=== PATIENT | male | born 1960 ===

== ENCOUNTER 2017-10-11 07:41 | Outpatient (CLI) | payer OTHER ==
[~2017-10-11] VITALS: Ht 152.4 cm; Wt 70.3 kg
== END 2017-10-11 08:00 | disposition home or self-care (01) ==
LOC: OFIC 805 07:41
DX: H91.8X1 Other specified hearing loss, right ear (principal); H90.72 Mixed conductive and sensorineural hearing loss, unilateral, left ear, with unrestricted hearing on the contralateral side; J31.0 Chronic rhinitis

== ENCOUNTER 2018-02-14 07:35 | Outpatient (CLI) | payer OTHER ==
[~2018-02-14] VITALS: Ht 152.4 cm; Wt 70.3 kg
== END 2018-02-14 07:50 | disposition home or self-care (01) ==
LOC: OFIC 805 07:35
DX: H93.8X1 Other specified disorders of right ear (principal); H90.72 Mixed conductive and sensorineural hearing loss, unilateral, left ear, with unrestricted hearing on the contralateral side; J31.0 Chronic rhinitis; R42 Dizziness and giddiness; H61.23 Impacted cerumen, bilateral

== ENCOUNTER 2018-05-23 07:32 | Outpatient (CLI) | payer OTHER ==
[~2018-05-23] VITALS: Ht 152.4 cm; Wt 70.3 kg
== END 2018-05-23 07:45 | disposition home or self-care (01) ==
LOC: OFIC 805 07:32
DX: H90.72 Mixed conductive and sensorineural hearing loss, unilateral, left ear, with unrestricted hearing on the contralateral side (principal); J31.0 Chronic rhinitis; R42 Dizziness and giddiness; H61.23 Impacted cerumen, bilateral; H90.41 Sensorineural hearing loss, unilateral, right ear, with unrestricted hearing on the contralateral side

== ENCOUNTER 2018-06-13 08:24 | Outpatient (CLI) | payer OTHER ==
[~2018-06-13] VITALS: Ht 152.4 cm; Wt 70.3 kg
== END 2018-06-13 08:40 | disposition home or self-care (01) ==
LOC: OFIC 805 08:24
DX: J31.0 Chronic rhinitis (principal); H90.72 Mixed conductive and sensorineural hearing loss, unilateral, left ear, with unrestricted hearing on the contralateral side; J34.2 Deviated nasal septum; J34.3 Hypertrophy of nasal turbinates; J32.8 Other chronic sinusitis; H91.8X1 Other specified hearing loss, right ear

== ENCOUNTER 2019-01-07 09:54 | Outpatient (CLI) | payer OTHER ==
[~2019-01-07] VITALS: Ht 152.4 cm; Wt 68.0 kg
[2019-01-07] MEDS ORDERED: ZYRTEC10 MG PO (13:00)
[2019-01-07] MEDS ORDERED: CEFUROXIME500 MG PO (13:00)
== END 2019-01-07 10:10 | disposition home or self-care (01) ==
LOC: OFIC 805 09:54
DX: H90.71 Mixed conductive and sensorineural hearing loss, unilateral, right ear, with unrestricted hearing on the contralateral side (principal); J31.0 Chronic rhinitis; J32.8 Other chronic sinusitis; J34.2 Deviated nasal septum; J34.3 Hypertrophy of nasal turbinates; H70.13 Chronic mastoiditis, bilateral

== ENCOUNTER 2020-12-13 12:45 | Outpatient (CLI) | payer OTHER ==
[~2020-12-13 12:45] MED LIST: CEFUROXIME500 MG PO; ZYRTEC10 MG PO
== END 2020-12-13 14:10 | disposition home or self-care (01) ==
LOC: OFIC 805 12:45
PROVIDERS: ATTEND Otolaryngology Otology & Neurotology
DX: H93.8X1 Other specified disorders of right ear (principal); H90.72 Mixed conductive and sensorineural hearing loss, unilateral, left ear, with unrestricted hearing on the contralateral side; H70.893 Other mastoiditis and related conditions, bilateral; J34.2 Deviated nasal septum; H61.23 Impacted cerumen, bilateral